=== PATIENT | male | born 1995 | race Hispanic/Latino ===

== ENCOUNTER 2017-05-28 10:40 | Emergency (ER) | payer BC, OTHER ==
[2017-05-28] MEDS ORDERED: KETOROLAC TROMETHAMINE 60 MG/2 ML VIAL ONE (11:19)
[2017-05-28 11:47] LABS: HEMATOCRIT 44.4 % (42-54); MEAN CORPUSCULAR HEMOGLOBIN 30.8 pg (27.0-33.0); MEAN CORPUSCULAR HGB CONC 34.3 g/dL (32.0-36.0); PLATELET COUNT (AUTO) 203 K/uL (130-400); RED BLOOD CELL COUNT(AUTO) 4.93 MIL/uL (4.50-6.20); RED CELL DISTRIBUTION WIDTH 13.5 % (11.0-15.5); WHITE BLOOD COUNT (AUTO) 3.9 K/uL (4.8-10.8)
[2017-05-28 11:48] LABS: APPEARANCE,URINE Clear (CLEAR); BILIRUBIN,URINE Negative (NEGATIVE); COLOR,URINE Dark Yellow (YELLOW); GLUCOSE, URINE (UA) Negative (NEGATIVE); KETONES,URINE Negative (NEGATIVE); LEUKOCYTE ESTERASE ,URINE Negative (NEGATIVE); NITRATE,URINE Negative (NEGATIVE); OCCULT BLOOD,URINE Negative (NEGATIVE); PH,URINE 5.5 (5.0-8.0); PROTEIN,URINE Negative (NEGATIVE)
[2017-05-28 11:55] LABS: CREATININE 0.9 mg/dL (0.5-1.5)
[2017-05-28 12:07] LABS: MUCUS,URINE Moderate LPF (None Seen); RBC,URINE None Seen /HPF (0-1); SQUAMOUS EPITHELIAL CELL,UR Rare /LPF (0-2)
[2017-05-28 12:08] LABS: BACTERIA,URINE Rare /HPF (None Seen); WBC,URINE 0-1 /HPF (0-1)
[2017-05-28 12:14] LABS: BAND NEUTROPHILS % (MANUAL) 1 % (0-2); BASOPHILS % (MANUAL) 1 % (0-2); EOSINOPHILS % (MANUAL) 1 % (1-6); LYMPHOCYTES % (MANUAL) 40 % (22-44); MONOCYTES % (MANUAL) 17 % (2-9); SEGMENTED NEUTROPHILS % 40 % (40-70)
[2017-05-28 12:16] LABS: PLATELET MORPHOLOGY COMMENT ADEQUATE
[2017-05-28 12:19] LABS: MAN.DIFF COMMENT-IMPRESSION MANUAL DIFFERENTIAL
[2017-05-28] MEDS ORDERED: LIDOCAINE 5% TOPICAL PATCH TP ONE (12:23)
== END 2017-05-28 12:31 | disposition home or self-care (01) ==
LOC: EDH 10:40
DX: M62.830 Muscle spasm of back (principal); B34.9 Viral infection, unspecified; Z72.0 Tobacco use
CPT/HCPCS: 36415; 71020; 80048; 81001; 85025; 96372; 99285; J1885

== ENCOUNTER 2024-11-11 08:48 | Emergency (ER) | payer BC ==
[~2024-11-11] VITALS: Ht 167.6 cm; Wt 79.4 kg
[2024-11-11 08:51] VITALS: TEMP 98.8
[2024-11-11] MEDS ORDERED: LIDOCAINE 1%-EPI 1:100,000 20 ML VIAL IJ SCH (09:30)
[2024-11-11] MEDS ORDERED: CEPH500B PO (09:55)
[2024-11-11] MEDS ORDERED: LIDO30CR20 TP (09:57)
--- NOTE | 2024-11-11 09:58 | ERN ---
General Chief Complaint: Rectal Bleed Stated Complaint: RECTAL BLEED Time Seen by MD: 08:53 Source: patient History of Present Illness Initial Comments This is a 29-year-old male coming in complaining of rectal pain. Per patient the pain began a couple of days ago. He states he has a history of hemorrhoids has been putting topical cream on it. He noticed some blood in the toilet yesterday and today. Allergies: Coded Allergies: No Known Drug Allergies (Unverified Allergy, Unknown, 11/11/24) Past Medical History Past Medical History: No Pertinent History Medical History Other: HEMORRHOIDS Past Surgical History: None ROS Dictation CONSTITUTIONAL: No chills, no fever, no weakness, no diaphoresis, no malaise. HEAD/FACE: No signs of trauma. EENT: No eye pain, no blurred vision, no tearing, no double vision, no ear pain, no ear discharge, no nose pain, no nasal congestion, no throat pain, no throat swelling, no mouth pain. RESPIRATORY: No cough, no orthopnea, no SOB, no stridor, no wheezing. CARDIOVASCULAR: No chest pain, no edema, no palpitations, no syncope. GASTROINTESTINAL/ABDOMINAL: No abdominal pain, no constipation, no diarrhea, no nausea, no vomiting. GENITOURINARY: No abnormal discharge, no dysuria, no frequent urination, no hematuria. pain in the genitals. MUSCULOSKELETAL: No back pain, no gout, no joint pain, no joint swelling, no muscle pain, no muscle stiffness, no neck pain. INTEGUMENTARY: No change in color, no change in hair/nails, no dryness, no lesion, no lumps, no rash. NEUROLOGICAL/PSYCH: No anxiety, not depressed, no emotional problem, no headache, no numbness, no pre-existing deficit, no history of seizures, no tremors, no weakness. HEMATOLOGIC/LYMPHATIC: Not anemic, no history of blood clots, no apparent bleeding, no bruising, glands not swollen. All Systems Negative, Except as Noted. Physical Exam Physical Exam Dictation VITAL SIGNS: Reviewed. GENERAL APPEARANCE: Alert, oriented x3, no acute distress, obese. HEAD AND FACE: Non-traumatic. EYES: PERRL, pink conjunctivas, eyelid no trauma, anterior chamber clear. EARS: Pinnas intact and no signs of trauma or erythema. Ear canals clear and no discharge. TMs no erythema. NOSE: No discharge, no bleeding. OROPHARYNX: Mouth normal, teeth no caries, tongue pink. Pharynx clear, no erythema. Tonsils no exudates, no abscesses noted. Mucous membrane moist. NECK: Supple, non-tender, no thyromegaly, no masses, no JVD, no bruits. BREAST: Deferred. CHEST: No tenderness, no crepitus, no paradoxical movement, no retractions. LUNGS: Clear, well-ventilated, symmetric, no rales, no wheezing, no rhonchi, no stridor, good breath sounds bilaterally. HEART: Regular rate, regular rhythm, no murmur, no gallops. VASCULAR: No peripheral edema. ABDOMEN: Soft, positive bowel sounds, nondistended, no guarding, nontender, no rebound, no masses no hepatomegaly, no splenomegaly, no Fish's sign, no hernias. RECTAL: Chaperoned by nurse, thrombosed hemorrhoid with bleeding was evaluated GENITAL: Deferred. NEUROLOGICAL: Normal speech, gross motor function intact, gross sensory function intact. MUSCULOSKELETAL: Neck nontender, full range of motion, back nontender, full range of motion. EXTREMITIES: Nontender, full range of motion. SKIN: Color pink, dry, no turgor, no rash, no lacerations, no abrasions, no contusions. LYMPHATICS: Deferred. Results Laboratory and Microbiology Labs Reviewed?: Yes MDM MDM: Differential diagnosis: Thrombosed hemorrhoid, bleeding hemorrhoid, Rationale: Tests considered and ordered secondary to shared decision making include: Previous outside records reviewed: Old ER visits. Risk of complication and/or morbidity or mortality of patient management: None Medications-Per medication reconciliation Need for hospitalization: Patient does not meet criteria for hospitalization. Patient is a 29-year-old male coming in complaining of rectal pain. On physical exam patient has a thrombosed hemorrhoid. Lidocaine was used for local anesthesia blunt dissection of the hemorrhoid removing blood clots and ligating with cat gut 4-0 running sutures were placed. Hemostasis obtained patient tolerated procedure well he will be discharged in stable condition with a diagnosis of thrombosed hemorrhoid. ED Course Orders Procedure Category Date Status Time Lidocaine 1%-Epi PHA 11/11/24 Complete 1:100,000 (Lidocaine 09:30 Lidocaine Hcl 1% 20ml PHA 11/11/24 Complete Vial (Lidocaine Hc 09:30 Tetanus,Diphtheria PHA 11/11/24 Complete Tox [Adult] (Diphther 09:30 Ceftriaxone 1g Vial PHA 11/11/24 Complete (Rocephine 1g Inj) 09:30 Current Medications Medications (Trade) Dose Ordered Sig/Amalia Route PRN Reason Start Time Stop Time Status Last Admin Dose Admin Ceftriaxone Sodium (ROCEphine 1G INJ) 1 gm ONCE ONCE IM 11/11/24 09:30 11/11/24 09:31 DC Lidocaine HCl (Lidocaine HCl 1% 20ml Vial) 20 ml ONCE ONCE INJ 11/11/24 09:30 11/11/24 09:31 DC Lidocaine/ Epinephrine (Lidocaine 1%-Epi 1:100,000) 20 ml ONCE IJ 11/11/24 09:30 11/11/24 09:23 DC Tetanus/ Diphtheria Toxoids Adsorbed (DiphthERIA-teTANUS TOXOID [ADULT]/ DECAVAC) 0.5 ml ONCE ONCE IM 11/11/24 09:30 11/11/24 09:31 DC Vital Signs Date Time Temp Pulse Resp B/P (MAP) Pulse Ox O2 Delivery O2 Flow Rate FiO2 11/11/24 08:51 98.8 68 18 127/81 98 Room Air 0 Procedure Dictation Rectal thrombosed hemorrhoid- Once sterilized it environment lidocaine 1% was used 5 mL of lidocaine were introduced good anesthesia achieved. Using blunt dissection thrombus was removed, using cat gut 4-0 running sutures were performed hemostasis obtained. Patient tolerated procedure well. DX & DISP Disposition: Discharge Departure Impression: Primary Impression: Thrombosed external hemorrhoid Condition: Stable Scripts Lidocaine (Recticare) 5 % Cream..g. 30 GM TP DAILY for 7 Days, #1 TUBE Prov: HERMINIA MONTES MD 11/11/24 Cephalexin Monohydrate (Keflex) 500 Mg Cap 1 CAP PO TID for 10 Days, #30 CAP 0 Refills Prov: HERMINIA MONTES MD 11/11/24 Additional Instructions: FOLLOW-UP WITH PRIMARY CARE PROVIDER IN 1 TO 2 DAYS. TAKE MEDICATIONS DIRECTED HERE IN THE EMERGENCY ROOM. OKAY TO CONTINUE HOME MEDICATIONS UNLESS OTHERWISE DISCUSSED DURING YOUR VISIT IN THE EMERGENCY ROOM TODAY. RETURN TO YOUR NEAREST EMERGENCY ROOM IF SYMPTOMS WORSEN OR IF THERE IS NO IMPROVEMENT. CALL 911 IF YOU NEED IMMEDIATE ASSISTANCE. TAKE TYLENOL [id number] NEEDED AND IF NO CONTRAINDICATIONS ARE PRESENT. INCREASE ORAL HYDRATION. A WOUND CULTURE OR URINE CULTURE WAS ORDERED HERE IN THE EMERGENCY ROOM DEPARTMENT PLEASE FOLLOW-UP WITH PRIMARY CARE PROVIDER AND ADVISE THEM TO GET REPORTS FROM OUR FACILITY. IF YOU HAD ANY LOC WRAP/SPLINTS THAT WERE APPLIED HERE, PLEASE DO NOT REMOVE THEM UNTIL YOU SEE YOUR PRIMARY CARE OR SPECIALTY. Referrals: Referrals: GIANNA MARIA (PCP) Time of Disposition: 09:55 HERMINIA MONTES MD Nov 11, 2024 09:58
[2024-11-11] MEDS: cefTRIAXone 1G VIAL IM ONE (10:17)
[2024-11-11] MEDS: LIDOCAINE HCL 1% 20 ML VIAL INJ ONE (10:17)
[2024-11-11] MEDS: teTANUS/diphthERIA TOXOID [ADULT] 0.5 ML VIAL IM ONE (10:18)
[2024-11-11 10:53] VITALS: BP 128/86; PULSE 65; RESP 17; O2SAT 98
== END 2024-11-11 10:59 | disposition home or self-care (01) ==
LOC: EDH 08:48
DX: K64.5 Perianal venous thrombosis (principal)
CPT/HCPCS: 46320; 99284; 90714; 96372; 90471; J0696